=== PATIENT | female | born 1935 | race Asian ===

== ENCOUNTER → 2017-03-27 | Outpatient (CLI) | payer OTHER | LOC: CIMAGING 15:16 | PROVIDERS: ATTEND Family Medicine | DX: Z01.811 Encounter for preprocedural respiratory examination (principal); J98.09 Other diseases of bronchus, not elsewhere classified | CPT/HCPCS: 71046-PO ==

== ENCOUNTER → 2017-11-24 | Outpatient (CLI) | payer OTHER | LOC: CIMAGING 09:57 | PROVIDERS: ATTEND Family Medicine | DX: M79.662 Pain in left lower leg (principal); M79.89 Other specified soft tissue disorders; M20.12 Hallux valgus (acquired), left foot | CPT/HCPCS: 73590-PO; 73610-PO; 73630-PO; 93971-PO ==